=== PATIENT | female | born 1985 | race African-American/Black ===

== ENCOUNTER 2017-04-04 20:06 | Emergency (ER) | payer MEDICAID ==
[~2017-04-04] VITALS: Ht 167.6 cm; Wt 91.0 kg
[~2017-04-04 20:06] MED LIST: BACT800T5 PO; BENZ100 PO; MEDR4PAK3 PO; OSEL75 PO; PYRI200T4 PO
[2017-04-04 20:07] VITALS: BP 131/79; PULSE 72; RESP 16; TEMP 99.1; O2SAT 99
[2017-04-04 21:35] LABS: BACTERIA, URINE RARE /hpf; BLOOD, URINE SMALL (NEG); COMMENT (UR) CULT NOT INDICATED; CULTURE IF INDICATED CULT NOT INDICATED; GLUCOSE,URINE NEG (NEG); KETONE, URINE NEG (NEG); NITRITE,URINE NEG (NEG); SQUAMOUS EPITHELIAL CELL URINE 2 /hpf (0-5); URINE COLOR YELLOW (YELLW/STRAW)
== END 2017-04-04 22:05 | disposition left against medical advice (07) ==
LOC: NED 20:06
DX: R10.9 Unspecified abdominal pain (principal)
CPT/HCPCS: 81001; 84703; 99281

== ENCOUNTER 2018-02-14 17:36 | Emergency (ER) | payer MEDICAID ==
[~2018-02-14] VITALS: Ht 162.6 cm; Wt 95.0 kg
[2018-02-14 17:42] VITALS: BP 162/72; PULSE 92; RESP 16; TEMP 98.3; O2SAT 99
--- NOTE | 2018-02-14 19:01 | PD ---
HPI Chief Complaint: Related Problem Time Seen by Provider: 18:31 Travel History International Travel<30 days: No Contact w/Intl Traveler<30days: No Traveled to known affect area: No History of Present Illness HPI 33-year-old female came to the emergency room with history pelvic cramps. Patient says her last menstrual cycle was January 01. She tested positive for at home recently. For past couple days she has been getting pelvic cramp with no bleeding. Last night she went to [facility] in [facility] with these complaints and had blood test and transvaginal ultrasound done. She was told that her beta hCG quant was 5000 and the transvaginal ultrasound did not show any pole. She was asked to follow-up with a doctor. She decided to come here today to be seen for the pelvic cramp and did not want to go back to [facility] because she had a prolonged wait time last night and was unhappy about that fact. The pelvic cramps are on and off and no aggravating or relieving symptoms identified. Vital signs are stable. [facility] Past Medical History Narrative Medical List of her past medical, surgical, social and family history is reviewed from the nursing note Hx Anticoagulant Therapy: No Cardiovascular Problems: No Chemotherapy: No Cerebrovascular Accident: No Diabetes: No Diminished Hearing: No Reproductive: Yes (HERPES ) Respiratory: Yes (asthma) Immunizations Current: Yes ?: LMP: 01/01/18 : 4 Para: 3 : 1 Past Surgical History Section: Yes Hysterectomy: No Social History Alcohol Use: No Tobacco Use: No Substance Use: No Allergies-Medications (Allergen,Severity, Reaction): Coded Allergies: No Known Allergies (Unverified , 10/21/14) Comments No known drug allergies. Reported Meds & Prescriptions Reported Meds & Active Scripts Active Pyridium (Phenazopyridine HCl) 200 Mg Tab 200 Mg PO Q8HR PRN Tessalon Perles (Benzonatate) 100 Mg Cap 100 Mg PO TID PRN Medrol Dosepak (Methylprednisolone) 4 Mg Jose Luis 4 Mg PO DIRECTED TAKE DIRECTED Bactrim DS (Sulfamethoxazole-Trimethoprim DS) 1 Tab Tab 1 Tab PO BID 7 Days Tamiflu 75 mg (Oseltamivir Phosphate) 75 Mg Cap 75 Mg PO BID 5 Days Bactrim DS (Sulfamethoxazole-Trimethoprim DS) 1 Tab Tab 1 Tab PO BID 10 Days Narrative Medication List of her home medications reviewed from the nursing note Review of Systems Except as stated in HPI: all other systems reviewed are Neg Genitourinary: Positive: Pelvic Pain Physical Exam Narrative GENERAL: Awake, alert, obese, no obvious distress SKIN: Focused skin assessment warm/dry. HEAD: Atraumatic. Normocephalic. EYES: Pupils equal and round. No scleral icterus. No injection or drainage. ENT: No nasal bleeding or discharge. Mucous membranes pink and moist. NECK: Trachea midline. No JVD. CARDIOVASCULAR: Regular rate and rhythm. No murmur appreciated. RESPIRATORY: No accessory muscle use. Clear to auscultation. Breath sounds equal bilaterally. GASTROINTESTINAL: Abdomen soft, non-tender, nondistended. Hepatic and splenic margins not palpable. MUSCULOSKELETAL: No obvious deformities. No clubbing. No cyanosis. No edema. NEUROLOGICAL: Awake and alert. No obvious cranial nerve deficits. Motor grossly within normal limits. Normal speech. PSYCHIATRIC: Appropriate mood and affect; insight and judgment normal. Data Data Last Documented VS Vital Signs Date Time Temp Pulse Resp B/P (MAP) Pulse Ox O2 Delivery O2 Flow Rate FiO2 02/14/18 17:42 98.3 92 16 162/72 (102) 99 Orders Orders Ed Discharge Order (02/14/18 18:57) Mandatory Outpatient Referral (02/14/18 19:01) [facility] Medical Decision Making Medical Screen Exam Complete: Yes Emergency Medical Condition: Yes Medical Record Reviewed: Yes Differential Diagnosis Early , pelvic pain Narrative Course 7 PM since patient had a beta-hCG quant done less than 48 hours ago I recommended that patient should wait to 48 hours to get a repeat beta-hCG quant. At that point either an OB if she has an appointment and repeated or she should come to the emergency room again. Patient understood the explanation. I answered all her questions to the best of my ability. I discharged her at this point. Procedures EKG Prior to Arrival: No Diagnosis Primary Impression: Early stage of Additional Impression: Pelvic pain in patient at less than 20 weeks gestation Referrals: Caitlin Cantrell MD 1 week Additional Instructions: Please follow-up with an OB. The name and number of the on-call OB for this [facility] has been provided to you on this discharge instruction. Call the office in try to get an appointment. You need a repeat blood test done in 48 hours from the first blood test. You may choose to return to this emergency room or the OB office to get that repeat blood test done. Do not have vaginal intercourse, tampons, douching or anything in the vagina until symptoms improve. Drink lots of fluid and bedrest. Disposition: 01 DISCHARGE HOME Condition: Stable Luis Magdaleno MD Feb 14, 2018 19:01
== END 2018-02-14 19:16 | disposition home or self-care (01) ==
LOC: NEPD 17:36
DX: O26.899 Other specified pregnancy related conditions, unspecified trimester (principal); R10.2 Pelvic and perineal pain; Z3A.00 Weeks of gestation of pregnancy not specified; J45.909 Unspecified asthma, uncomplicated; Z79.899 Other long term (current) drug therapy
CPT/HCPCS: 99282